=== PATIENT | male | born 1985 | race Caucasian/White ===

== ENCOUNTER 2017-05-22 13:12 | Emergency (ER) | payer BC ==
[2017-05-22 13:19] VITALS: BP 163/100
[2017-05-22] MEDS ORDERED: Ibuprofen 400 MG Tab PO ONE (13:46)
--- NOTE | 2017-05-22 13:57 | EDM.PDOC ---
<Magi Jones - Last Filed: 05/22/17 15:30> ED HPI GENERAL MEDICAL PROBLEM - General Chief Complaint: Upper Extremity Injury/Pain Stated Complaint: R HAND RING FINGER LAC Time Seen by Provider: 05/22/17 13:45 Source of Information: Reports: Patient History Limitations: Reports: No Limitations - History of Present Illness INITIAL COMMENTS - FREE TEXT/NARRATIVE: Patient is a 32 YO male who presents after slamming his finger in his garage door. He states the wind caught the door and slammed on the right ring finger. He then tried to rip his hand out quick which caused a laceration to the palmar aspect of the 4th finger. He denies numbness or tingling to the finger. He is able to move the finger. He does not know when his last tetanus was. Right Hand Pain Score (Numeric/FACES): 5 - Related Data Allergies Allergy/AdvReac Type Severity Reaction Status Date / Time Sulfa (Sulfonamide Allergy unknown Verified 05/22/17 13:19 Antibiotics) Home Meds: Home Meds Cephalexin [IJD: Cephalexin] 500 mg PO BID #20 cap 05/22/17 [Rx] Past Medical History - Past Health History Medical/Surgical History: Denies Medical/Surgical History - Infectious Disease History Infectious Disease History: Reports: Chicken Pox Social & Family History - Tobacco Use Smoking Status *Q: Never Smoker Second Hand Smoke Exposure: No - Caffeine Use Caffeine Use: Reports: None - Recreational Drug Use Recreational Drug Use: No Review of Systems - Review of Systems Review Of Systems: See Below Constitutional: Reports: No Symptoms Respiratory: Reports: No Symptoms Cardiovascular: Reports: No Symptoms Skin: Reports: Other (laceration to the right 4th finger palmar aspect, denies numbness or tingling) Neurological: Reports: No Symptoms Psychiatric: Reports: No Symptoms ED EXAM, GENERAL - Physical Exam Exam: See Below Exam Limited By: No Limitations General Appearance: Alert, WD/WN, No Apparent Distress Respiratory/Chest: No Respiratory Distress Extremities: Other Neurological: Alert, Oriented, CN II-XII Intact, Normal Cognition, No Motor/ Sensory Deficits Psychiatric: Normal Affect, Normal Mood Skin Exam: Other (laceration palmar aspect 4th finger on right hand. Cap refil < 2 seconds. Sensation intact. Full ROM to the finger. Small scratch to the dorsal aspect.) ED TRAUMA EXTREMITY PROCEDURES - Laceration/Wound Repair Right Anterior Proximal Finger Lac/Wound Length In cm: 2 Appearance: Subcutaneous Distal NVT: Neuro & Vascular Intact, No Tendon Injury Anesthetic Type: Local Local Anesthesia - Lidocaine (Xylocaine): 1% Plain Local Anesthetic Volume: 4cc Skin Prep: Saline, Sterile Drape Saline Irrigation (cc's): 120 Exploration/Debridement/Repair: Wound Explored, No Foreign Material Found Closed With: Sutures Suture Size: 4-0 # of Sutures: 9 Suture Type: Nylon Sterile Dressing Applied: Other (finger splinted) Course - Vital Signs Last Recorded V/S: Last Vital Signs Temp 35.9 C 05/22/17 13:16 Pulse 69 05/22/17 13:16 Resp 18 05/22/17 13:16 BP 163/100 H 05/22/17 13:16 Pulse Ox 97 05/22/17 13:16 - Orders/Labs/Meds Meds: Medications Discontinued Medications Generic Name Dose Route Start Last Admin Trade Name Freq PRN Reason Stop Dose Admin Ibuprofen 400 mg 05/22/17 13:46 05/22/17 13:53 Motrin PO 05/22/17 13:47 400 mg ONETIME ONE Administration Lidocaine HCl 10 ml 05/22/17 14:19 05/22/17 14:27 Xylocaine 1% INJECT 05/22/17 14:20 10 ml ONETIME ONE Administration Departure - Departure Time of Disposition: 15:17 Disposition: Home, Self-Care 01 Condition: Good Clinical Impression: Laceration Finger fracture, right Qualifiers: Encounter type: initial encounter Finger: ring finger Fracture type: open Phalanx: proximal Fracture alignment: nondisplaced Qualified Code(s): S62.644B - Nondisplaced fracture of proximal phalanx of right ring finger, initial encounter for open fracture - Discharge Information Prescriptions: Cephalexin [IJD: Cephalexin] 500 mg PO BID #20 cap Instructions: Finger Fracture, [id number], Laceration Care, Adult Referrals: PCP,None [Primary Care Provider] - Ji Yates DO [Physician] - Forms: ED Department Discharge Additional Instructions: You received 9 sutures to the right ring finger today. Keep the area covered, clean and dry. Do not soak the finger. Clean with soap and water and pat dry. Apply bacitracin to the area. Keep the finger splint on until you follow up with orthopedics. The sutures can be removed in 10 days. This can be done when you follow up with orthopedics. You have been prescribed Keflex 500 mg for 10 days. Take 1 tab every 12 hours as prescribed. Please return to the ER if your symptoms change or worsen. <Cora Solis - Last Filed: 05/22/17 22:45> ED HPI GENERAL MEDICAL PROBLEM - History of Present Illness INITIAL COMMENTS - FREE TEXT/NARRATIVE: Patient was initially seen by BEULAH Daly. icing the patient include history of present illness as documented by her. Additionally demean the patient reports he is right-handed. Review of Systems - Review of Systems Musculoskeletal: Reports: Other (no decreased ROM) Skin: Reports: Wound (right hand 4th finger) Neurological: Denies: Numbness, Tingling ED EXAM, GENERAL - Physical Exam Peripheral Pulses: 2+: Radial (R) Extremities: Normal Range of Motion (Patient is able to make a fist, flex and extend the right hand fourth finger and abduct and abduct the fourth finger. He is able to do this both on his own and against resistance.) Course - Re-Assessments/Exams Free Text/Narrative Re-Assessment/Exam: 05/22/17 15:14 Has seen the patient and agree with the history of present illness, review of systems and physical exam as documented by BEULAH Daly. X-ray reviewed by myself and Dr. Whitt, concern for nondisplaced fracture to the right hand fourth proximal phalanx. Formal radiology read did not appreciate any abnormalities, however, will treat conservatively with a splint. Discharge instructions as documented.
[2017-05-22] MEDS ORDERED: Lidocaine 1% 10 ML MDV INJECT ONE (14:19)
--- NOTE | 2017-05-22 15:28 | CR ---
Right hand: Four views of the right hand were obtained. Comparison: No previous study. Joint spaces are preserved. No fracture, dislocation or other bony abnormality is seen. Impression: 1. No acute bony abnormality is seen on right hand study. Diagnostic code #1
== END 2017-05-22 15:45 | disposition home or self-care (01) ==
LOC: JD.ED 13:12
DX: S62.644B Nondisplaced fracture of proximal phalanx of right ring finger, initial encounter for open fracture (principal); Z88.2 Allergy status to sulfonamides; W23.1XXA Caught, crushed, jammed, or pinched between stationary objects, initial encounter
CPT/HCPCS: 12001; 73130; 99283; A9270